=== PATIENT | male | born 1965 | race Caucasian/White ===

== ENCOUNTER 2021-09-05 14:38 | Emergency (ER) | payer BC ==
[~2021-09-05] VITALS: Ht 177.8 cm; Wt 90.7 kg
[~2021-09-05 14:38] MED LIST: FISH OIL 1,0001 EAC9 PO; MEN'S MULTIVIT1 EACH PO
[2021-09-05 16:55] LABS: INFLUENZA A ANTIGEN Negative (Negative); INFLUENZA B ANTIGEN Negative (Negative)
[2021-09-05] MEDS ORDERED: TESSALON PERLE100 MG PO (16:58)
[2021-09-05] MEDS ORDERED: APAP W/CODEINE1 TA2 PO (16:58)
[2021-09-05 17:27] VITALS: BP 158/102
== END 2021-09-05 17:29 | disposition home or self-care (01) ==
LOC: M.ERS 14:38
PROVIDERS: Physician Assistant
DX: J06.9 Acute upper respiratory infection, unspecified (principal); Z79.899 Other long term (current) drug therapy; Z98.890 Other specified postprocedural states